=== PATIENT | female | born 1950 | race Caucasian/White ===

== ENCOUNTER → 2016-08-30 | Day surgery (SDC) | payer OTHER ==
[~2016-08-30] MED LIST: BUPIVACAINE/EPINEPHRINE 0.25% 50 ML VIAL ONE; KETOROLAC TROMETHAMINE 30 MG/ML (IVP) VIAL IV PUSH ONE; LACTATED RINGER'S 1000 ML INJ 1,000 ML ONE; MIDAZOLAM HCL 2 MG/2 ML VIAL ONE; MORPHINE SULFATE 4 MG/ML INJ ONE; ONDANSETRON HCL 4 MG/2 ML VIAL IV PUSH ONE; PROPOFOL 200 MG/20 ML AMP IV ONE; ceFAZolin INJ 1,000 MG VIAL ONE
--- NOTE | 2016-08-30 12:08 | TN ---
cc: LAURA BRISENO M.D. DATE OF SURGERY 08/30/2016 PREOPERATIVE DIAGNOSES 1. Right knee medial meniscus tear. 2. Right knee loose bodies. 3. Right knee degenerative arthritis. POSTOPERATIVE DIAGNOSES 1. Right knee complex large medial meniscus tear and degenerative lateral meniscus tear. 2. Right knee multiple large osteophytes impinging upon the intercondylar notch and the patellofemoral joint. 3. Right knee multiple loose bodies. 4. 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 PROCEDURE PERFORMED 1. Right knee arthroscopy with partial medial and lateral meniscectomies. 2. Right knee excision of large osteophytes off the intercondylar notch and off of the superior pole of the patella. 3. Right knee arthroscopic removal of multiple loose bodies. 4. Right knee chondroplasty patella, medial femoral condyle and medial tibia plateau. INDICATIONS FOR THE PROCEDURE Mrs. Avila is a 66-year-old woman who has been experiencing problems with right knee pain, mechanical symptoms and swelling since an injury at work in January of 2015. She has been found to have evidence of a right knee medial meniscus tear in addition to what appears to be a loose body. She has some mild to moderate underlying degenerative arthritis of the knee as well. She reports that she has had little improvement with conservative management and as a result of her persistent symptoms, especially medial joint line discomfort, she is being taken to the operating room for arthroscopic debridement of the knee. She is aware of the risks, benefits and potential complications of the procedure and full written informed consent was obtained. DESCRIPTION OF PROCEDURE After the patient was properly identified in the holding area, she correctly marked her right knee and I had initialed it as well. She was then given 1 gram of intravenous Ancef as prophylactic antibiotic. At this time she was taken into the operating suite where she was placed under general laryngeal mask anesthetic by Dr. Fernández. At this time a well-padded thigh-high tourniquet was applied to her right leg and she was then prepped with alcohol and Hibiclens and draped in the normal standard fashion including the use of an impervious stockinette from the foot all the way up to the midcalf level. At this time a brief time-out was held confirming the right leg was the appropriate surgical site. The team was in agreement and the case was now begun. The right leg was elevated and then exsanguinated with an Red wrap and the tourniquet was raised to 300 mmHg. Standard anteromedial and anterolateral joint line portals were established. The scope was introduced. Yellowish effusion was evacuated. The suprapatellar pouch showed small multiple loose bodies which were aspirated and there was some significantly hypertrophic synovial tissue which was debrided back to a more normal-appearing joint line. The patellofemoral joint showed very large osteophytes off of the superior pole of patella and they were somewhat hinged and it was very concerning that they would spontaneously break off and become a loose body. I went ahead and use the arthroscopic pituitary rongeur to remove the largest of the osteophytes, especially the ones that were felt to be unstable. Further chondroplasty with the shaver was then used to smooth the leading edge. The area of full-thickness cartilage loss, especially on the lateral facet of the patella was debrided with an oscillating shaver. Other areas of loose cartilage underneath the patella were debrided as well. The trochlear groove showed much less significant chondromalacia. The patella tracked midline and did not show any evidence of significant subluxation medially or laterally. At this time the medial gutter was explored. No loose bodies were appreciated. The medial compartment was now entered. There was a large complex tear of the medial meniscus which was debrided with an oscillating shaver and then further contoured with hand instruments. I was able to smooth the surface to the point where the remaining rim no longer impinged within the joint. There was an area of grade 4 chondromalacia directly under the complex medial meniscus tear on the medial tibial plateau. There were some areas of incomplete loss of cartilage surrounding one central defect; it looked like it was going to be the source of further loose debris so I went ahead and performed further chondroplasty at that site. The opposing surface on the femoral condyle had primarily grade 3-A and 3-B chondromalacia that was incomplete. I went ahead and debrided only the areas where there was any contact or there was any evidence of subtle instability. The anterior cruciate ligament was now visualized in the intercondylar notch. There was another very unstable-appearing osteophyte off of the intercondylar roof which appeared to be hinged. There appeared to have been at least one fragment which was loose and I was able to just excise it freehand and then there was another fragment which was still somewhat attach that did require the use of the pituitary rongeur to remove there was clearly evidence of impingement with these osteophytes on the surface of the ACL and actually on the surface of the lateral tibial plateau with the knee in extension. Therefore I felt as though excision of these fragments was appropriate to prevent generation of a full loose body and to help eliminate possible sources of pain. The anterior cruciate ligament was intact and cantor and tensioned appropriately with anterior drawer maneuvers. The posterior cruciate ligament was poorly visualized but it did tension appropriately with posterior drawer. The lateral compartment was now entered. There was a degenerative apparent tear on the central portion of the lateral meniscus with extension into the anterior horn. I went ahead and debrided this with an oscillating shaver and then probed the meniscal rim and it was quite stable. There was less significant chondromalacia appreciated of the lateral tibial plateau and the lateral femoral condyle. The knee was then thoroughly irrigated and suction decompressed several times. I reinspected all compartments numerous times to be certain that there was no further debris present. Once the all the instruments were fully removed, the portals were closed with 3-0 nylon simple sutures and the knee was then injected with 30 cc of 0.25% Marcaine with epinephrine. The portals were closed with Xeroform, 4x4, ABDs were applied and Red wrap was then applied and the tourniquet was let down. There was brisk return of capillary refill and she reestablished distal pulses quickly. She was then awoken from anesthesia and taken to Recovery in stable condition. Appropriate postoperative orders have been written. Laura Briseno MD Electronically Signed Laura Briseno MD SIS/SS[facility] /11:22 AM 11:41 AM [email or web address]
== END | disposition home or self-care (01) ==
LOC: ESDC 08:41
PROVIDERS: ATTEND Orthopaedic Surgery Sports Medicine
DX: S83.231A Complex tear of medial meniscus, current injury, right knee, initial encounter (principal); S83.281A Other tear of lateral meniscus, current injury, right knee, initial encounter; M17.11 Unilateral primary osteoarthritis, right knee; M22.41 Chondromalacia patellae, right knee; M25.761 Osteophyte, right knee
CPT/HCPCS: 01400; 29880; J0690; J1885; J2250; J2270; J2405; J3010; J7120